=== PATIENT | female | born 1980 | race Two or more races ===

== ENCOUNTER 2017-02-23 08:41 | Emergency (ER) | payer OTHER ==
[2017-02-23 08:53] VITALS: BMI 35.3
--- NOTE | 2017-02-23 09:16 | PDOC ---
*Physical Exam - Vital Signs Last Vital Signs Temp Pulse Resp BP Pulse Ox 97.8 F 88 18 118/77 99 02/23/17 08:44 02/23/17 08:44 02/23/17 08:44 02/23/17 08:44 02/23/17 08:44 Heart Score/ECG Review #1 ECG reviewed & interpreted by me at: 09:16 General ECG Interpretation: Sinus Rhythm, Normal Rate, Normal Intervals, No acute ischemic changes Medical Decision Making - Medical Decision Making 02/23/17 09:16 Pt seen by Midlevel Provider under my direct supervision Ancillary studies reviewed I agree with plan as outlined by Midlevel Provider *DC/Admit/Observation/Transfer Diagnosis at time of Disposition: - Discharge Dispostion Disposition: HOME Condition at time of disposition: Good - Referrals Referrals: Francisco J Aponte [Primary Care Provider] - - Patient Instructions Printed Discharge Instructions: Managing Symptoms of Additional Instructions: US read as early (IUP) with a beta of >9000. Please follow-up with your OB no later than early next week Return to ER for worsening of symptoms
--- NOTE | 2017-02-23 09:21 | PDOC ---
History of Present Illness - General Chief Complaint: Chest Pain Stated Complaint: BACK/ CHEST PAIN Time Seen by Provider: 02/23/17 08:52 History Source: Patient - History of Present Illness Presenting Symptoms: Chest Pain Timing/Duration: reports: getting worse, intermittent Location: reports: substernal Chest Pain Radiation: reports: arms, back Prior Chest Pain/Cardiac Workup: reports: No prior chest pain Past History - Past Medical History Allergies/Adverse Reactions: Allergies Allergy/AdvReac Type Severity Reaction Status Date / Time No Known Allergies Allergy Verified 02/23/17 08:55 Home Medications: Ambulatory Orders NK [No Known Home Medication] 03/11/16 Asthma: No Cancer: No Cardiac Disorders: No Diabetes: No HTN: No Suicide Attempt (Hx): No Seizures: No Thyroid Disease: No Other medical history: denies - Surgical History Abdominal Surgery: Yes - Reproductive History (#): 6 Para: 2 Ectopic : Yes Spontaneous : 4 - Immunization History Immunization Up to Date: Yes - Psycho/Social/Smoking Cessation Hx Anxiety: No Suicidal Ideation: No Smoking Status: No Smoking History: Never smoked Have you smoked in the past 12 months: No Number of Cigarettes Smoked Daily: 0 Information on smoking cessation initiated: No Hx Alcohol Use: No Drug/Substance Use Hx: No Substance Use Type: None Hx Substance Use Treatment: No Review of Systems - Review of Systems Constitutional: No: Chills, Fever Respiratory: No: Cough, Shortness of Breath Cardiac (ROS): Yes: Chest Pain. No: Lightheadedness, Palpitations, Syncope ABD/GI: No: Nausea, Vomiting Musculoskeletal: Yes: Back Pain *Physical Exam - Vital Signs Last Vital Signs Temp Pulse Resp BP Pulse Ox 97.8 F 88 18 118/77 99 02/23/17 08:44 02/23/17 08:44 02/23/17 08:44 02/23/17 08:44 02/23/17 08:44 - Physical Exam General Appearance: Yes: Appropriately Dressed. No: Apparent Distress HEENT: positive: Normal Voice Neck: positive: Supple Respiratory/Chest: positive: Lungs Clear, Normal Breath Sounds. negative: Respiratory Distress Cardiovascular: positive: Regular Rate, S1, S2 Gastrointestinal/Abdominal: positive: Soft. negative: Tender Extremity: positive: Normal Inspection Integumentary: positive: Dry, Warm Neurologic: positive: Fully Oriented, Alert, Normal Mood/Affect ED Treatment Course - ADDITIONAL ORDERS Additional order review: Laboratory Results 02/23/17 02/23/17 02/23/17 10:35 10:15 09:11 Beta HCG, Quant 9229.5 Urine Color Yellow Urine Appearance Slcloudy Urine pH 5.0 Urine Protein Negative Urine Glucose (UA) Negative Urine Ketones Negative Urine Blood Negative Urine Nitrite Negative Urine Bilirubin Negative Urine Urobilinogen Negative Ur Leukocyte Esterase Trace H Urine RBC 2 Urine WBC 8 Ur Epithelial Cells Moderate Hyaline Casts 3 Urine Mucus Many Urine HCG, Qual Positive - RADIOLOGY Radiology Studies Ordered: Category Date Time Status TRANSVAGINAL US PREG [US] Stat Ultrasound 02/23/17 10:08 Taken Medical Decision Making - Medical Decision Making 02/23/17 09:11 37-year-old female, history of ? anxiety, here with chest pain radiating to back and left arm 1 week. Describes pain as pressure with an intensity of 6 out of 10, last for 5-10 minutes and then resolves on its own. No exacerbating/ alleviating factors. Over the past 4 days, pain has worsened but better today. Patient also reports nausea and dizziness and does not feel like herself. Denies shortness of breath, diaphoresis palpitations, leg pain or swelling. No history of similar pain in the past. No obvious risk factors for DVT/PE See exam Constellation of symptoms in ED which is new to pt (~7weeks by LMP, (spon/elective ABs and ectopic) No abd pain, vag bleed or dysuria Well jalen and stable w/ unremarkable exam Will do w/u in ED including beta/US as d/w ED attg -anticipate dc w/ OB f/u 02/23/17 10:07 02/23/17 12:47 US read as ges + yok sac at ~ 5 weeks 6 days, no pole seen. Pt informed and will f/u with her OB *DC/Admit/Observation/Transfer Diagnosis at time of Disposition: Qualifiers: Weeks of gestation: unspecified Qualified Code(s): Z33.1 - state, incidental - Discharge Dispostion Disposition: HOME Condition at time of disposition: Good - Referrals Referrals: Francisco J Aponte [Primary Care Provider] - - Patient Instructions Printed Discharge Instructions: Managing Symptoms of Additional Instructions: US read as early (IUP) with a beta of >9000. Please follow-up with your OB no later than early next week Return to ER for worsening of symptoms
[2017-02-23 10:28] LABS: URINE APPEARANCE SLCLOUDY; URINE BILIRUBIN NEGATIVE (NEGATIVE); URINE BLOOD NEGATIVE (NEGATIVE); URINE COLOR YELLOW; URINE GLUCOSE (UA) NEGATIVE (NEGATIVE); URINE KETONE NEGATIVE (NEGATIVE); URINE NITRITE NEGATIVE (NEGATIVE); URINE PROTEIN NEGATIVE (NEGATIVE); URINE UROBILINOGEN NEGATIVE E.U./dl (0.2-1.0)
--- NOTE | 2017-02-23 10:30 | EKG ---
Test Reason : Blood Pressure : / mmHG Vent. Rate : 088 BPM Atrial Rate : 088 BPM P-R Int : 164 ms QRS Dur : 074 ms QT Int : 346 ms P-R-T Axes : 044 009 025 degrees QTc Int : 418 ms NORMAL SINUS RHYTHM NORMAL ECG NO PREVIOUS ECGS AVAILABLE Confirmed by OLIMPIA NORTON MD ([id number]) on 02/23/2017 10:29:53 AM Referred By: Confirmed By:OLIMPIA NORTON MD
[2017-02-23 10:31] LABS: URINE LEUK ESTERASE TRACE (NEGATIVE)
[2017-02-23 10:34] LABS: URINE HYALINE CAST 3 /lpf; URINE MUCUS MANY; URINE RBC 2 /hpf (0-3); URINE WBC 8 /hpf (3-5)
[2017-02-23 12:55] VITALS: BP 128/74; PULSE 80; TEMP 98.6
== END 2017-02-23 12:54 | disposition home or self-care (01) ==
LOC: JER 08:41
DX: Z33.1 Pregnant state, incidental (principal)
CPT/HCPCS: 36415; 76817-TC; 81003; 81015; 84702; 84703; 87086; 93005; 93010; 99282-25

== ENCOUNTER 2017-03-06 22:04 | Emergency (ER) | payer OTHER ==
[2017-03-06 22:13] VITALS: BP 108/67; PULSE 100; TEMP 98.2; BMI 34.0
--- NOTE | 2017-03-06 23:24 | PDOC ---
History of Present Illness - History of Present Illness Initial Comments: 03/06/17 23:36 Patient is a 37 year old female (LNMP: 12/24/16) with significant medical hx of ectopic , miscarriage, and fallopian tube removal who is presenting to the ED with vaginal bleeding and abdominal cramping since today. The patient complains of heavy vaginal bleeding, saturating five pads today, and passing clots with urination. She also complains of pelvic abdominal cramping that are similar to her menstrual cramps. The patient states her symptoms are similar to her past miscarriage, which occurred last year. The patient notes that she has an appointment with the clinic at [address] [place] [address] next week. Denies fever, chills, nausea, vomiting, diarrhea, lightheadedness. She denies taking RhoGAM with past pregnancies. A4/M1/1 ectopic Surgical Hx: x 1, ectopic, fallopian tube removal Care: [facility] Allergies: NKDA PCP: Francisco J Aponte MD <Makeda Massey - Last Filed: 03/06/17 23:36> <Jackie Mccollum - Last Filed: 03/07/17 03:03> <Amanda Altman - Last Filed: 03/07/17 03:18> - General Chief Complaint: Vaginal Bleeding Stated Complaint: VAGINAL BLEEDING/7 WKS Time Seen by Provider: 03/06/17 22:43 Past History <Makeda Massey - Last Filed: 03/06/17 23:36> <Jackie Mccollum - Last Filed: 03/07/17 03:03> - Past Medical History Asthma: No Cancer: No Cardiac Disorders: No Diabetes: No HTN: No Suicide Attempt (Hx): No Seizures: No Thyroid Disease: No - Surgical History Abdominal Surgery: Yes - Reproductive History (#): 6 Para: 2 Ectopic : Yes Therapeutic (s) & number: Yes Spontaneous : 4 - Immunization History Immunization Up to Date: Yes - Psycho/Social/Smoking Cessation Hx Anxiety: No Suicidal Ideation: No Smoking Status: No Smoking History: Never smoked Have you smoked in the past 12 months: No Number of Cigarettes Smoked Daily: 0 Hx Alcohol Use: No Drug/Substance Use Hx: No Substance Use Type: None Hx Substance Use Treatment: No <Amanda Altman - Last Filed: 03/07/17 03:18> - Past Medical History Allergies/Adverse Reactions: Allergies Allergy/AdvReac Type Severity Reaction Status Date / Time No Known Allergies Allergy Verified 03/06/17 22:13 Home Medications: Ambulatory Orders NK [No Known Home Medication] 03/11/16 Review of Systems - Review of Systems Comments:: 03/06/17 23:42 CONSTITUTIONAL: Absent: fever, chills, diaphoresis, generalized weakness, malaise, loss of appetite HEENT: Absent: rhinorrhea, nasal congestion, throat pain, throat swelling, difficulty swallowing, mouth swelling, ear pain, eye pain, visual changes CARDIOVASCULAR: Absent: chest pain, syncope, palpitations, irregular heart rate, lightheadedness , peripheral edema RESPIRATORY: Absent: cough, shortness of breath, dyspnea with exertion, orthopnea, wheezing, stridor, hemoptysis GASTROINTESTINAL: Present: pelvic cramping Absent: abdominal distension, nausea, vomiting, diarrhea, constipation, melena, hematochezia GENITOURINARY: Present: vaginal bleeding Absent: dysuria, frequency, urgency, hesitancy, hematuria, flank pain, genital pain MUSCULOSKELETAL: Absent: myalgia, arthralgia, joint swelling SKIN: Absent: rash, itching, pallor HEMATOLOGIC/IMMUNOLOGIC: Absent: easy bleeding, easy bruising, lymphadenopathy, frequent infections ENDOCRINE: Absent: unexplained weight gain, unexplained weight loss, heat intolerance, cold intolerance NEUROLOGIC: Absent: headache, focal weakness or paresthesia, dizziness, unsteady gait, seizure, mental status changes, bladder or bowel incontinence. PSYCHIATRIC: Absent: anxiety, depression, suicidal or homicidal ideation, hallucinations <Makeda Massey - Last Filed: 03/06/17 23:36> *Physical Exam - Vital Signs Last Vital Signs Temp Pulse Resp BP Pulse Ox 98.2 F 100 H 18 108/67 99 03/06/17 22:10 03/06/17 22:10 03/06/17 22:10 03/06/17 22:10 03/06/17 22:10 - Physical Exam Comments: 03/06/17 23:43 GENERAL: Well developed, well nourished. Awake and alert. No acute distress. HEENT: Normocephalic, atraumatic. PERRLA, EOMI. No conjunctival pallor. Sclera are non- icteric. Moist mucous membranes. Oropharynx is clear. NECK: Supple. Full ROM. No JVD. Carotid pulses 2+ and symmetric, without bruits. No thyromegaly. No lymphadenopathy. CARDIOVASCULAR: Regular rate and rhythm. No murmurs, rubs, or gallops. Distal pulses are 2+ and symmetric. PULMONARY: No evidence of respiratory distress. Lungs clear to auscultation bilaterally. No wheezing, rales or rhonchi. ABDOMINAL: Soft. Non-tender. Non-distended. No rebound or guarding. No organomegaly. Normoactive bowel sounds. MUSCULOSKELETAL: Normal range of motion at all joints. No bony deformities or tenderness. No CVA tenderness. EXTREMITIES: No cyanosis. No clubbing. No edema. No calf tenderness. SKIN: Warm and dry. Normal capillary refill. No rashes. No jaundice. NEUROLOGICAL: Alert, awake, appropriate. Cranial nerves 2-12 intact. Normal speech. Toes are down-going bilaterally. Gait is normal without ataxia. PSYCHIATRIC: Cooperative. Good eye contact. Appropriate mood and affect. <Makeda Massey - Last Filed: 03/06/17 23:36> - Vital Signs Last Vital Signs Temp Pulse Resp BP Pulse Ox 98.2 F 100 H 18 108/67 99 03/06/17 22:10 03/06/17 22:10 03/06/17 22:10 03/06/17 22:10 03/06/17 22:10 <Jackie Mccollum - Last Filed: 03/07/17 03:03> - Vital Signs Last Vital Signs Temp Pulse Resp BP Pulse Ox 98.2 F 100 H 18 108/67 99 03/06/17 22:10 03/06/17 22:10 03/06/17 22:10 03/06/17 22:10 03/06/17 22:10 <Amanda Altman - Last Filed: 03/07/17 03:18> ED Treatment Course - LABORATORY CBC & Chemistry Diagram: 03/06/17 23:40 - ADDITIONAL ORDERS Additional order review: Laboratory Results 03/06/17 03/06/17 03/06/17 23:46 23:40 23:24 Beta HCG, Quant 34044.4 Urine Color Yellow Urine Appearance Slcloudy Urine pH 5.0 Urine Protein Negative Urine Glucose (UA) Negative Urine Ketones Negative Urine Blood 3+ H Urine Nitrite Negative Urine Bilirubin Negative Urine Urobilinogen Negative Ur Leukocyte Esterase Trace H Urine RBC 16 Urine WBC 12 Ur Epithelial Cells Moderate Urine Bacteria Rare Urine Mucus Few Blood Type O POSITIVE Antibody Screen Negative 03/06/17 23:40 RBC 4.08 MCV 82.4 MCHC 32.8 RDW 14.4 D MPV 8.1 Neutrophils % 53.5 D Lymphocytes % 37.3 Monocytes % 5.2 Eosinophils % 3.0 Basophils % 1.0 <Jackie Mccollum - Last Filed: 03/07/17 03:03> - LABORATORY CBC & Chemistry Diagram: 03/06/17 23:40 <Amanda Altman - Last Filed: 03/07/17 03:18> Medical Decision Making - Medical Decision Making 03/07/17 03:[address] Matias Farmer (via cell phone) at 3:03 and patient's case was discussed. <Jackie Mccollum - Last Filed: 03/07/17 03:03> - Medical Decision Making 03/07/17 03:13 37-year-old female presents with pelvic bleeding and cramping for 4 days. She is about 7 weeks' . She was seen here on February 23. At that time beta- hCG was 9000 and today it's 34,000. I spoke to the radiologist, and there was concern for a right corneal ectopic. Case is discussed with her BUSINESS LAW PROFESSOR, Dr. Farmer, who recommended the patient be seen later today at [address] [place] [address]. The situation was explained to the and the patient and she will go to the clinic today. Options of methotrexate or scheduled surgery were mentioned to the patient <Amanda Altman - Last Filed: 03/07/17 03:18> *DC/Admit/Observation/Transfer - Attestations Scribe Attestion: 03/06/17 23:44 Documentation prepared by Makeda Massey, acting as director medical science for Amanda Altman MD. <Makeda Massey - Last Filed: 03/06/17 23:36> <Jackie Mccollum - Last Filed: 03/07/17 03:03> <Amanda Altman - Last Filed: 03/07/17 03:18> Diagnosis at time of Disposition: Cornual or cervical - Discharge Dispostion Disposition: HOME - Referrals Referrals: Francisco J Aponte [Primary Care Provider] - Matias Farmer MD [Staff Physician] - - Patient Instructions Printed Discharge Instructions: DI for Ectopic Additional Instructions: Go to the [address] [place] [address] clinic and see the marketing assistant manager. You have a cornual ectopic which must be treated Call 911 if you develop severe pain or heavy bleeding
[2017-03-06 23:54] LABS: MCHC 32.8 g/dl (32.0-36.0); MEAN CELL VOLUME 82.4 fl (80-96); MEAN PLT VOLUME 8.1 fl (7.5-11.1); NEUTROPHILS 53.5 % (42.8-82.8); PLATELET COUNT 300 K/MM3 (134-434); RDW 14.4 % (11.6-15.6); WHITE BLOOD COUNT 8.9 K/mm3 (4.0-10.0)
[2017-03-07 00:38] LABS: URINE APPEARANCE SLCLOUDY; URINE BILIRUBIN NEGATIVE (NEGATIVE); URINE COLOR YELLOW; URINE GLUCOSE (UA) NEGATIVE (NEGATIVE); URINE KETONE NEGATIVE (NEGATIVE); URINE NITRITE NEGATIVE (NEGATIVE); URINE PROTEIN NEGATIVE (NEGATIVE); URINE UROBILINOGEN NEGATIVE E.U./dl (0.2-1.0)
[2017-03-07 00:40] LABS: URINE BLOOD 3+ (NEGATIVE); URINE LEUK ESTERASE TRACE (NEGATIVE)
[2017-03-07 00:50] LABS: URINE BACTERIA RARE /hpf (NONE SEEN); URINE MUCUS FEW; URINE RBC 16 /hpf (0-3); URINE WBC 12 /hpf (3-5)
== END 2017-03-07 00:28 | disposition home or self-care (01) ==
LOC: JER 22:04
DX: O26.891 Other specified pregnancy related conditions, first trimester (principal); Z3A.01 Less than 8 weeks gestation of pregnancy; O00.80 Other ectopic pregnancy without intrauterine pregnancy
CPT/HCPCS: 36415; 76817-TC; 81003; 81015; 84702; 85025; 86850; 86900; 86901; 99283-25

== ENCOUNTER 2017-03-15 08:21 | Day surgery (SDC) | payer OTHER ==
[2017-03-14 17:54] VITALS: BMI 38.0
--- NOTE | 2017-03-15 09:16 | HP ---
Past Medical History - Primary Care Physician PCP:: Alecia Mcginnis - Admission Chief Complaint: 37 yrs , LMP 12/24/16 11.5 weeks gestation is diagnozed missed , but BHCG progressively have been increasing hence suspect molar pregnacy also . c/o mild cramps, spotting, dizziness sometimes . History of Present Illness: h/o seen in ER on 02/23/17 for bleeding & pain ,BHCG 9229.5, Sono ut12.9 cm, IUGSac5.6 days with yolk sac & no pole 03/06/17 , 2 nd visit to ER for increasing pain & bleeding , BHCG , 54408.4, SONO 6.4 wks, no herat motion, suspect subchorionic hemorrhage & possible cornual ectopic . h/h 11.0/33.6 O pos , 03/07/17 pt evaluated at 2, [facility] BHCG 92511,0. 03/09/17 BHCG 56515.0 Sono Missed ab with subchorionic hemorrhage . 03/14/17 pt c/o dizziness & fever on 03/13 for 2 hrs 103, subsided after po Tylenol. 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 Weeks Gestation by Dates: 11.5 Additional OB History: G1 2000 . G2 2001 Sp Ab. G3 2008 Ectopic pregn Lt Salpingectomy. G4 2011 Sp Ab. G5 2012 Primary c/section baby 9'2'. G6 2015 ETOP,. G7 2016 Sp Ab 13 weeks ,. G8 Current pregn demise, Missed ab Heme/Onc: No: Anemia Infectious Disease: Yes: STD's (h/o chlamydia h/o Herpes simplex rx po Valttrex 500 mg po prn q 3-4 days) Psych: No: Addictions, Anxiety, Bipolar, Depression Endocrine: No: Diabetes Mellitus, Hyperthyroidism, Hypothyroidism - Past Surgical History Past Surgical History: Yes: (12/28/2011) Hx Myomectomy: No Hx Transabdominal Cerclage: No Additional Surgical History: Ectopic pregn Left salpingectomy 09/22/2008 - Smoking History Smoking history: Never smoked Have you smoked in the past 12 months: No Aproximately how many cigarettes per day: 0 - Alcohol/Substance Use Hx Alcohol Use: No History of Substance Use: reports: None Home Medications - Allergies Allergies/Adverse Reactions: Allergies Allergy/AdvReac Type Severity Reaction Status Date / Time No Known Allergies Allergy Verified 03/15/17 11:03 - Home Medications Home Medications: Ambulatory Orders Ibuprofen [Motrin -] 400 mg PO PRN PRN 03/14/17 Valacyclovir HCl [Valtrex -] 500 mg PO ASDIR 03/14/17 Physical Exam-[employer] Constitutional: Yes: Well Nourished, Mild Distress, Obese Eyes: Yes: WNL HENT: Yes: WNL, Normocephalic Neck: Yes: WNL Cardiovascular: Yes: WNL, Regular Rate and Rhythm Respiratory: Yes: WNL, CTA Bilaterally Gastrointestinal: Yes: WNL, Normal Bowel Sounds, Abdomen, Obese. No: Tenderness , Tenderness, Epigastrium, Tenderness, Rebound Renal/: Yes: . No: CVA Tenderness - Left, CVA Tenderness - Right External Genitalia: Yes: Normal Internal Exam Deferred: Yes Vaginal Exam: Yes: Bleeding (spotting, brown discharge) Cervix: Yes: Bleeding (light brown color). No: Cerv Motion Tenderness Uterus: Yes: Freely Moveable, Anteverted, Enlarged (14 weeks size), Soft. No: Tender Adnexa: Normal: Bilateral, Not Palpable: Bilateral (no tenderness ) Breast(s): Yes: WNL Musculoskeletal: Yes: WNL Extremities: Yes: WNL. No: Calf Tenderness ...Motor Strength: WNL Psychiatric: Yes: WNL Labs: Laboratory Tests 02/23/17 03/06/17 03/14/17 10:15 23:46 18:35 WBC 11.5 H RBC 4.43 Hgb 11.8 Hct 35.8 Plt Count 362 D Neutrophils % 61.4 Lymphocytes % 29.4 D Monocytes % 5.3 Eosinophils % 3.3 Basophils % 0.6 INR Sodium Potassium Chloride Carbon Dioxide BUN Creatinine Creat Clearance w eGFR Random Glucose Calcium AST ALT TSH Free T4 Beta HCG, Quant Urine Protein Urine Ketones Urine Blood Ur Leukocyte Esterase Urine RBC Urine WBC Ur Epithelial Cells Hyaline Casts 3 Urine Bacteria Rare Urine Mucus 03/14/17 03/14/17 03/14/17 18:35 18:35 18:35 WBC RBC Hgb Hct Plt Count Neutrophils % Lymphocytes % Monocytes % Eosinophils % Basophils % INR 1.05 Sodium 139 Potassium 3.8 Chloride 106 Carbon Dioxide 22 BUN 12 Creatinine 0.5 L Creat Clearance w eGFR > 60 Random Glucose 77 Calcium 9.3 AST 17 D ALT 22 TSH 1.56 Free T4 0.88 Beta HCG, Quant 01236.6 Urine Protein Urine Ketones Urine Blood Ur Leukocyte Esterase Urine RBC Urine WBC Ur Epithelial Cells Hyaline Casts Urine Bacteria Urine Mucus 03/14/17 18:35 WBC RBC Hgb Hct Plt Count Neutrophils % Lymphocytes % Monocytes % Eosinophils % Basophils % INR Sodium Potassium Chloride Carbon Dioxide BUN Creatinine Creat Clearance w eGFR Random Glucose Calcium AST ALT TSH Free T4 Beta HCG, Quant Urine Protein Negative Urine Ketones Trace H Urine Blood 2+ H Ur Leukocyte Esterase Trace H Urine RBC 34 Urine WBC 27 Ur Epithelial Cells Moderate Hyaline Casts Urine Bacteria Urine Mucus Rare Imaging - Results Chest X-ray: Report Reviewed (neg on 03/14/17) Ultrasound: Report Reviewed (02/23, 03/07 & 03/09/17 possible missed ab, subchorionic hemorrhage) Problem List - Problem (1) Missed Code(s): O02.1 - MISSED Assessment/Plan 37 yrs , 11.5 weeks by dates, 6.5 weeks by sono , missed ab with subchorionic hemorrhage , increasing BHCG titers are noted possibllty of molar pregn , incomplete mole , or possible ectopic pregn as well suspected plan Dilatation Suction Curettage, under sonographic control send uterine contents for pathology evaluation if necessary may do laproscopy .
[2017-03-15] MEDS ORDERED: MIDAZOLAM HCL 2 MG/2 ML SINGLE DOSE VIAL ONE (12:47)
[2017-03-15] MEDS ORDERED: PROPOFOL 20 ML ONE ×2 (12:47)
[2017-03-15] MEDS ORDERED: ceFAZolin SODIUM 1 GM VIAL ONE (13:01)
[2017-03-15] MEDS ORDERED: ceFAZolin SODIUM 1 GM VIAL IVPB ONE (13:02)
[2017-03-15] MEDS ORDERED: OXYTOCIN 10 UNITS/ML VIAL ONE (13:21)
[2017-03-15] MEDS ORDERED: ONDANSETRON 4 MG/2 ML VIAL ONE (13:40)
[2017-03-15] MEDS ORDERED: IBUPROFEN 400 MG TABLET (FP) PO PRN (13:40)
[2017-03-15] MEDS ORDERED: ACETAMINOPHEN 325 MG TABLET (FP) PO PRN (13:40)
[2017-03-15] MEDS ORDERED: oxyCODONE HCL 5 MG TABLET PO PRN (13:40)
[2017-03-15] MEDS ORDERED: LACTATED RINGERS SOLUTION 1,000 ML IV SCH (13:45)
[2017-03-15] MEDS ORDERED: ONDANSETRON 4 MG/2 ML VIAL IVPUSH PRN (13:45)
--- NOTE | 2017-03-15 13:53 | OP ---
Operative Note - Note: Operative Date: 03/15/17 Pre-Operative Diagnosis: Missed ( 11.5 weeks) Operation: dilatation suction curreatage. with intraop us guidance Findings: ut 12 weeks size, utero cervical length 10 cm cx dilated upto #11, 10 #curved canual used for suction intraop us guidance process complete was confirmed pathologist confirmed IUP Post-Operative Diagnosis: Same as Pre-op Surgeon: Alecia Mcginnis Anesthesiologist/BENCH SCIENTIST: Tamika Tucker Anesthesia: General Specimens Removed: uterine contents Estimated Blood Loss (mls): 50 Drains, Volume Out (mls): 100 (before the case ) Fluid Volume Replaced (mls): 1,000 (Iv Ancef 2 gm ivpb ) Operative Report Dictated: Yes
--- NOTE | 2017-03-15 14:44 | OP ---
DATE OF OPERATION: 03/15/2017 PREOPERATIVE DIAGNOSIS: Missed , rule out molar . POSTOPERATIVE DIAGNOSIS: Missed . SURGEON: Mikael Mcginnis MD ANESTHESIOLOGIST: Tamika Tucker MD ANESTHESIA: General. INDICATIONS: This is a 37-year-old 8, para 2-0-5-2. LMP was on December, at 11.5 weeks' gestation, diagnosed with a missed . Sonogram shows an intrauterine gestational sac, no pole, no hear, and subchorionic hemorrhage, but her hCGs were progressively increasing. On February 23 it was 9229.5 ; on March 07 it was 34,356.4; on March 09 it was 45,189. Hence, molar was suspected. Pathologist was informed to check intraoperatively uterine contents for chorionic villi. Ultrasound-guidance intraoperative also was requested. DESCRIPTION OF PROCEDURE: The patient was taken to the operating room table. General anesthesia was given. Lithotomy position was given. The pubis, perineum and vagina were painted with Betadine and draped in the usual manner. A time-out was done. She received 2 grams of IV Ancef preoperatively. Bladder was catheterized and emptied; 100 mL of aracely-colored urine was removed. Pelvic examination was done. The uterus was anteverted, 12 weeks' size. Cervix was posterior. Adnexa was not palpable. A weighted speculum was put in. The anterior lip of the cervix held with a single-tooth tenaculum. The cervix was dilated up to number 11 dilator. A number 10 cannula was introduced into the uterine cavity and suction curettage was done until no more suctioned contents were obtained. Curettage was done. Then an abdominopelvic sonogram was done, and still some contents could be seen on the right cornual area. So repeat suction and curettage was done until no more tissue sac was noted on the right cornual end. Completion of the procedure was confirmed. The contents were sent to the pathologist. He called me back and said that the intrauterine is confirmed. The patient tolerated the procedure well, and it was decided not to do any further procedures. The patient was transferred to the recovery room in stable condition. Estimated blood loss was 50 mL. She received 1000 mL of Ringer lactate in the OR and Pitocin 20 units was added to it. MIKAEL MCGINNIS M.D. [id number] MTDD
[2017-03-15 15:32] VITALS: TEMP 98.7
[2017-03-15 20:27] VITALS: BP 124/74; PULSE 93
--- NOTE | 2017-03-16 13:37 | PATH ---
Surgical Pathology Report Patient Name: BECKY CHURCHILL [facility]. Rec. #: [id number] /Age/Gender: 1980 (Age: 37) / F Account: [id number] Location: [facility] SURGICAL Taken: 03/15/2017 Received: 03/15/2017 Reported: 03/16/2017 Physicians: Alecia Mcginnis M.D. Specimen(s) Received A: PRODUCTS OF CONCEPTION B: UTERINE CONTENTS Clinical History Missed , rule out molar 11.5 weeks IUG sac No pole, no heart on ultrasound Progressively increasing HCG titer History of in past Intraoperative Consult Diagnosis Contents of uterus: Chorionic villous tissue present, as per Dr. Cabrera on 03/15/17 at 1:23 PM. Final Diagnosis A. UTERINE CONTENTS, EVACUATION: CHORIONIC VILLI CONSISTENT WITH PRODUCTS OF CONCEPTION, ALONG WITH DECIDUA AND HYPERSECRETORY ENDOMETRIUM. NO HISTOLOGIC EVIDENCE OF HYDATIDIFORM MOLE IDENTIFIED. B. UTERINE CONTENTS, EVACUATION: HYPER SECRETORY ENDOMETRIUM AND PORTIONS OF MYOMETRIAL TISSUE. CLOTTED BLOOD IS PRESENT. Comment: Chromosome analysis is pending, and a report will follow. Electronically Signed Osiel Luo M.D. Addendum Reported: 03/29/2017 Addendum Diagnosis Chromosome Analysis performed and interpreted at [facility] in [place], [place] (Specimen #[id number]) shows the following: RESULTS: 46,XX Female karyotype INTERPRETATION: Normal karyotype (female) within the limits of resolution attained. Comment: See [facility] report for additional details. Osiel Luo M.D. Gross Description A. Received fresh labeled "contents of uterus," is a 7.0 x 6.2 x 1.0 cm aggregate of dubose red soft tissue fragments. Villous tissue is identified. No definite somatic tissue is identified. A auto claim representative portion is placed in RPMI solution and sent for chromosomal analysis. Additional auto claim representative portions are submitted in 3 cassettes. /03/15/2017 B. Received in formalin, in 2 separate undesignated containers, both labeled "uterine contents," is a 7.0 x 5.0 x 0.7 cm aggregate of dubose red soft tissue fragments within the larger container and a 3.0 x 2.2 x 0.4 cm aggregate of predominantly blood clot within the smaller container. No definite villous tissue or somatic tissue is identified within either container. Weatherization Administrator sections are submitted in 2 cassettes as follows: 1-tissue from larger container; 2-blood clot from smaller container. 03/15/2017 [facility]03/15/2017
== END 2017-03-15 16:55 | disposition home or self-care (01) ==
LOC: JASU-SURG 08:21
PROVIDERS: ATTEND Obstetrics & Gynecology
PROC: 10D17ZZ Extraction of Products of Conception, Retained, Via Natural or Artificial Opening (ICD-10-PCS; principal; 2017-03-15 12:00)
DX: O02.1 Missed abortion (principal)
CPT/HCPCS: 76998-TC; 88305-TC; 88329; 94760